=== PATIENT | female | born 2000 | race Caucasian/White ===

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

== ENCOUNTER 2022-04-19 12:02 | Emergency (ER) | payer OTHER ==
[2022-04-19 12:18] VITALS: O2SAT 98
[2022-04-19] MEDS ORDERED: MOTRIN 600 MG PO ONE (12:56)
--- NOTE | 2022-04-19 13:01 | ERPHSYRPT ---
- History of Present Illness Time Seen by Provider: 04/19/22 12:09 Source: patient Exam Limitations: no limitations Patient Subjective Stated Complaint: Patient c/o right ankle pain. States she fell yesterday evening. Triage Nursing Assessment: Patient ambulated back to ED; limping. Patient is alert and oriented. No bruising or skin alterations noted to RLE but right outer ankle is swollen and tender to touch. Physician History: 22 years old female presented in ER with chief complaint of right lateral ankle/foot pain and swelling after she twisted accidentally yesterday leading to fall Since then she is having moderate to severe sharp pain with ambulation/weightbearing and better with resting, ice Method of Injury: fell, twisted Occurred: yesterday Quality: constant, sharpness Severity of Pain-Max: moderate Severity of Pain-Current: moderate Lower Extremities Pain: foot: right, ankle: right Modifying Factors: Improves With: cold therapy, immobilization, rest. Worsens With: movement Associated Symptoms: unable to bear weight Allergies/Adverse Reactions: No Known Drug Allergies Allergy (Verified 04/19/22 12:11) Hx Tetanus, Diphtheria Vaccination/Date Given: Yes Hx Influenza Vaccination/Date Given: No Hx Pneumococcal Vaccination/Date Given: No Immunizations Up to Date: Yes Travel Risk - International Travel Have you traveled outside of the country in past 3 weeks: No - Coronavirus Screening Are you exhibiting any of the following symptoms?: No Close contact with a COVID-19 positive Pt in past 14-21 Days: No - Vaccine Status Have you recieved a Covid-19 vaccination: No - Review of Systems Constitutional: No Symptoms Respiratory: No Symptoms Cardiac: No Symptoms Abdominal/Gastrointestinal: No Symptoms Genitourinary Symptoms: No Symptoms Musculoskeletal: Injury, Joint Pain, Joint Swelling Skin: No Symptoms Neurological: No Symptoms Psychological: No Symptoms Endocrine: No Symptoms Hematologic/Lymphatic: No Symptoms Immunological/Allergic: No Symptoms - Past Medical History Pertinent Past Medical History: Yes Neurological History: No Pertinent History ENT History: No Pertinent History Cardiac History: No Pertinent History Respiratory History: No Pertinent History Endocrine Medical History: No Pertinent History Musculoskeletal History: Fractures GI Medical History: No Pertinent History History: No Pertinent History Psycho-Social History: Depression Female Reproductive Disorders: No Pertinent History - Past Surgical History Past Surgical History: Yes Musculoskeletal: Orthopedic Surgery Other Surgical History: right arm - Social History Smoking Status: Never smoker Exposure to second hand smoke: No Drug Use: none Patient Lives Alone: No - Female History Hx Last Menstrual Period: 3 weeks ago Hx Now: No - Nursing Vital Signs Nursing Vital Signs: Initial Vital Signs Temperature 98 F 04/19/22 12:03 Pulse Rate 80 04/19/22 12:03 Respiratory Rate 16 04/19/22 12:03 Blood Pressure 121/82 04/19/22 12:03 O2 Sat by Pulse Oximetry 98 04/19/22 12:03 Pain Scale Pain Intensity 5 - Physical Exam General Appearance: no apparent distress, alert Neck Exam: normal inspection, full range of motion Cardiovascular/Respiratory Exam: normal breath sounds, regular rate/rhythm Legs Exam: bilateral leg: non-tender, normal inspection, normal range of motion, no evidence of injury Knees Exam: bilateral knee: non-tender, normal inspection, normal range of motion, no evidence of injury Ankle Exam: right ankle: bone tenderness (Lateral malleolus), limited range of motion, pain, soft tissue tenderness, swelling, left ankle: non-tender, normal inspection, normal range of motion, no evidence of injury Foot Exam: right foot: pain, soft tissue tenderness, swelling, left foot: non- tender, normal inspection, normal range of motion, no evidence of injury Neuro/Tendon Exam: normal sensation, normal motor functions, normal tendon functions Mental Status Exam: alert, oriented x 3, cooperative Skin Exam: normal color SpO2 Interpretation: normal SpO2: 98 O2 Delivery: Room Air Ordered Tests: Active Orders 24 hr Category Date Time Status Cold Application STAT Care 04/19/22 12:11 Completed Crutches STAT Care 04/19/22 13:05 Completed Splint STAT Care 04/19/22 13:05 Completed ANKLE (3 VIEWS) Stat Exams 04/19/22 12:33 Completed FOOT (MINIMUM 3 VIEWS) Stat Exams 04/19/22 12:10 Completed Medication Summary Discontinued Medications Generic Name Dose Route Start Last Admin Trade Name Isis PRN Reason Stop Dose Admin Ibuprofen 600 mg 04/19/22 12:56 04/19/22 13:06 Ibuprofen 600 Mg Tablet PO 04/19/22 12:57 600 mg STAT ONE Administration Ibuprofen Confirm 04/19/22 13:06 Ibuprofen 600 Mg Tablet Administered 04/19/22 13:07 Dose 600 mg .ROUTE .STK-MED ONE - Progress Progress: unchanged Progress Note: 04/19/22 12:58 She is given ibuprofen for symptomatic relief as she does not want any parenteral pain medication. X-rays foot and ankle reviewed by me did not reveal any obvious fracture dislocation. I believe has a ligamentous strain/sprain. We will place an Aircast, NSAIDs and weightbearing as tolerated. Outpatient podiatry follow-up recommended. Counseled pt/family regarding: diagnosis, need for follow-up, rad results - Departure Departure Disposition: Home Clinical Impression: Ankle sprain Qualifiers: Encounter type: initial encounter Involved ligament of ankle: unspecified ligament Laterality: right Qualified Code(s): S93.401A - Sprain of unspecified ligament of right ankle, initial encounter Condition: Stable Critical Care Time: No Referrals: DOCTOR,NO FAMILY [Primary Care Provider] - Follow up/PCP as directed LUCIANO MEAD DPM [ACTIVE STAFF] - Follow up/PCP as directed (Tomorrow for reevaluation) Instructions: Ankle Sprain (DC) Additional Instructions: Take Tylenol/ibuprofen as needed. Weightbearing as tolerated. Follow-up with foot and ankle doctor tomorrow for reevaluation. Return to ER for increasing pain swelling or difficulty movements. Prescriptions: Ibuprofen 600 mg PO Q6HPRN PRN 10 Days #20 tablet PRN Reason: Pain
[2022-04-19] MEDS ORDERED: MOTRIN 600 MG ONE (13:06)
[2022-04-19 13:13] VITALS: BP 128/75; PULSE 76
--- NOTE | 2022-04-19 19:53 | XRAY ---
Indication: Pain following tripping injury. Comparison: None 3 nonweightbearing views right foot obtained. No bony, articular, or soft tissue abnormalities.
--- NOTE | 2022-04-19 19:53 | XRAY ---
Indication: Pain following tripping injury. Comparison: None 3 view right ankle demonstrates mild lateral soft tissue swelling. No other bony, articular, or soft tissue abnormalities.
== END 2022-04-19 13:13 | disposition home or self-care (01) ==
LOC: ED 12:02
DX: S93.401A Sprain of unspecified ligament of right ankle, initial encounter (principal); W01.0XXA Fall on same level from slipping, tripping and stumbling without subsequent striking against object, initial encounter; M25.571 Pain in right ankle and joints of right foot; Z28.310 Unvaccinated for COVID-19
CPT/HCPCS: 73610; 73630; 99283; A9270-GY

== ENCOUNTER 2022-07-03 10:47 | Emergency (ER) | payer OTHER ==
--- NOTE | 2022-07-03 11:13 | ERPHSYRPT ---
- History of Present Illness Source: patient Exam Limitations: no limitations Patient Subjective Stated Complaint: C/O a headache for the past 2 days. Patient indicates that she thinks it is a migraine. Denies any falls or injury to her head. Triage Nursing Assessment: Patient ambulated back to ED without difficulties. No SOB. She is alert and oriented. Skin tone normal, warm, dry. Physician History: 22 yo wf w frontal WILDER x 3 days. Pt states no h/o WILDER and pain worse ever. She denies head injury, fever,cough, and stiff neck. Pain is throbbing and worse w bright lights and noise. She denies N/V/, and focal weakness. Pt told my nurse that she does have a h/o WILDER but worse ever today. Timing/Duration: other (3 days) Quality: throbbing Head Pain Location: frontal Severity of Pain-Max: severe Severity of Pain-Current: moderate Recent Head Trauma: no recent headache/trauma Modifying Factors: Improves With: exposure to light (Worse), noise (Worse) Associated Symptoms: denies symptoms Previous symptoms: no prior history (Told my nurse that she has a h/o MGHA) Allergies/Adverse Reactions: No Known Drug Allergies Allergy (Verified 07/03/22 10:56) Home Medications: No Reportable Medications [No Reported Medications] 07/03/22 [History] Hx Tetanus, Diphtheria Vaccination/Date Given: Yes Hx Influenza Vaccination/Date Given: No Hx Pneumococcal Vaccination/Date Given: No Immunizations Up to Date: Yes Travel Risk - International Travel Have you traveled outside of the country in past 3 weeks: No - Coronavirus Screening Are you exhibiting any of the following symptoms?: Yes Symptoms: Headaches/Body Aches/Fatigue Close contact with a COVID-19 positive Pt in past 14-21 Days: No - Vaccine Status Have you recieved a Covid-19 vaccination: No - Review of Systems Constitutional: No Symptoms Eyes: No Symptoms Ears, Nose, & Throat: No Symptoms Respiratory: No Symptoms Cardiac: No Symptoms Abdominal/Gastrointestinal: No Symptoms Genitourinary Symptoms: No Symptoms Musculoskeletal: No Symptoms Skin: No Symptoms Neurological: No Symptoms, Headache Psychological: No Symptoms Endocrine: No Symptoms Hematologic/Lymphatic: No Symptoms Immunological/Allergic: No Symptoms - Past Medical History Pertinent Past Medical History: Yes Neurological History: Migraines ENT History: No Pertinent History Cardiac History: No Pertinent History Respiratory History: No Pertinent History Endocrine Medical History: No Pertinent History Musculoskeletal History: Fractures GI Medical History: No Pertinent History History: No Pertinent History Psycho-Social History: Depression Female Reproductive Disorders: No Pertinent History - Past Surgical History Past Surgical History: Yes Musculoskeletal: Orthopedic Surgery Other Surgical History: right arm - Social History Smoking Status: Never smoker Exposure to second hand smoke: No Drug Use: none Patient Lives Alone: No - Female History Hx Last Menstrual Period: 3 weeks ago Hx Now: No - Nursing Vital Signs Nursing Vital Signs: Initial Vital Signs Temperature 98.3 F 07/03/22 10:57 Pulse Rate 108 H 07/03/22 10:57 Respiratory Rate 17 07/03/22 10:57 Blood Pressure 106/74 07/03/22 10:57 O2 Sat by Pulse Oximetry 98 07/03/22 10:57 Pain Scale Pain Intensity 5 Tachy - Physical Exam General Appearance: no apparent distress Eye Exam: PERRL/EOMI, eyes nml inspection Ears, Nose, Throat Exam: normal ENT inspection, TMs normal, pharynx normal, moist mucous membranes Neck Exam: normal inspection, non-tender, supple, full range of motion, No meningismus, No mass, No Brudzinski, No Kernig's, No carotid bruit Respiratory Exam: normal breath sounds, lungs clear, airway intact Cardiovascular Exam: regular rate/rhythm, normal heart sounds, normal peripheral pulses, capillary refill <2 sec, No murmur Gastrointestinal/Abdominal Exam: soft, normal bowel sounds, No tenderness Back Exam: normal inspection, normal range of motion, No CVA tenderness, No vertebral tenderness Extremity Exam: normal inspection, normal range of motion Mental Status Exam: alert, oriented x 3, cooperative hydrographic surveyor Exam: normal hearing, normal speech, PERRL, No abnormal eye position, No abnormal gag reflex Coordination/Gait Exam: normal finger to nose, normal gait, normal cerebellar function, negative Romberg's sign Motor/Sensory Exam: no motor deficit, no sensory deficit, no pronator drift, No negative Babinski's sign DTR Exam: bicep (R): 2+, bicep (L): 2+, knee (R): 2+, knee (L): 2+ Skin Exam: normal color, warm, dry, No rash Lymphatic Exam: No adenopathy SpO2 Interpretation: normal SpO2: 98 O2 Delivery: Room Air - CT Exams Head CT Interpretation: Discussed w/radiologist (CT head neg) Ordered Tests: Active Orders 24 hr Category Date Time Status HEAD WITHOUT CONTRAST [CT] Stat Exams 07/03/22 11:07 Completed Medication Summary Discontinued Medications Generic Name Dose Route Start Last Admin Trade Name Isis PRN Reason Stop Dose Admin Ketorolac Tromethamine 30 mg 07/03/22 12:37 07/03/22 12:45 Ketorolac Tromethamine 30 Mg/Ml Inj IM 07/03/22 12:38 30 mg STAT ONE Administration Ketorolac Tromethamine Confirm 07/03/22 12:44 Ketorolac Tromethamine 30 Mg/Ml Inj Administered 07/03/22 12:45 Dose 30 mg .ROUTE .STK-MED ONE - Progress Progress: improved Progress Note: 07/03/22 12:37 30mg IM Toradol Counseled pt/family regarding: diagnosis, need for follow-up, rad results - Departure Departure Disposition: Home Clinical Impression: Migraine headache Condition: Stable Critical Care Time: No Referrals: DOCTOR,NO FAMILY [Primary Care Provider] - Follow up/PCP as directed Instructions: Migraines (DC), Headache, Adult (DC) Additional Instructions: Follow up with your family MD Return to ER for increasing pain, focal weakness, or temperature greater than 100.5 Forms: Work/School Release Form
--- NOTE | 2022-07-03 11:48 | XRAY ---
Indication: Frontal headache. No known injury. Multiple contiguous axial images obtained through the head without contrast. Comparison: None Normal appearing brain parenchyma, ventricles, and bony calvarium for patient's age. Paranasal sinuses and mastoid air cells are clear. Impression: Normal CT head without contrast exam.
[2022-07-03] MEDS ORDERED: TORAdol 30 mg Injection IM ONE (12:37)
[2022-07-03] MEDS ORDERED: TORAdol 30 mg Injection ONE (12:44)
[2022-07-03 12:50] VITALS: BP 110/70; PULSE 88
[2022-07-03 14:47] VITALS: O2SAT 98
== END 2022-07-03 13:00 | disposition home or self-care (01) ==
LOC: ED 10:47
DX: G43.909 Migraine, unspecified, not intractable, without status migrainosus (principal); Z20.828 Contact with and (suspected) exposure to other viral communicable diseases
CPT/HCPCS: 70450; 96372; 99283; J1885